=== PATIENT | female | born 1980 | race Caucasian/White ===

== ENCOUNTER 2020-05-14 15:45 | Inpatient (IN) | payer BC ==
[~2020-05-14] VITALS: Ht 165.1 cm; Wt 77.1 kg
[~2020-05-14 15:45] MED LIST: COLACE 100MG C100 MG PO; IBUPROFEN600 MG PO; LORTAB 5-325 M1 EACH PO; ONDANSETRON ODT4 MG SL; PANTOPRAZOLE SO40 MG PO; PHENERGAN 25 MG25 M1 PO; PREDNISONE 10 M10 MG PO; PREDNISONE 5 MG5 MG PO; PRENATAL VITAM1 EAC3 PO
[2020-05-14 19:00] LABS: HEMOGLOBIN 17.5 gm/dl (12.3-15.3); RED BLOOD COUNT 5.56 M/UL (4.00-5.10)
[2020-05-14 19:23] LABS: BUN/CREATININE RATIO 22 (0-10)
[2020-05-15] MEDS ORDERED: PROMETHAZINE HC25 M1 PO (09:03)
[2020-05-16] MEDS ORDERED: PREDNISONE 5 MG5 MG PO (15:05)
[2020-05-16] MEDS ORDERED: ONDANSETRON ODT8 MG PO (15:05)
[2020-05-16] MEDS ORDERED: PHENERGAN 25 MG25 M1 PO (15:05)
== END 2020-05-16 17:36 | disposition home or self-care (01) | DRG 833 ==
LOC: M/S 15:45
PROVIDERS: ADMIT Obstetrics & Gynecology
DX: O21.1 Hyperemesis gravidarum with metabolic disturbance (principal); Z3A.00 Weeks of gestation of pregnancy not specified; Z28.21 Immunization not carried out because of patient refusal
CPT/HCPCS: 80053; 85027; 96374; 96375; 96376; G0378; G0379; J1720; J2550; J7120